=== PATIENT | female | born 1950 | race African-American/Black ===

== ENCOUNTER 2018-04-18 08:18 | Emergency (ER) | payer MEDICARE, OTHER ==
[~2018-04-18] VITALS: Ht 170.2 cm; Wt 80.0 kg
[~2018-04-18 08:18] MED LIST: VERA240C2 PO
[2018-04-18] MEDS ORDERED: AMLODIPINE 5MG TABLET PO ONE (10:00)
[2018-04-18] MEDS ORDERED: KETOROLAC 60MG/2ML VIAL IM STA (10:00)
[2018-04-18 10:20] LABS: BASOPHILS % 0.9 % (0.0-2.0); EOSINOPHILS % 1.4 % (0.0-5.0); HEMATOCRIT. 40.3 % (36.0-48.0); HEMOGLOBIN. 13.7 g/dL (12.0-16.0); LYMPHOCYTES % 36.1 % (20.0-50.0); MEAN CORPUSCULAR HEMOGLOBIN 32.3 pg (28.0-32.0); MEAN CORPUSCULAR VOLUME 95.2 fL (81.0-99.0); MEAN PLATELET VOLUME 7.4 fl (7.4-10.4); MONOCYTES % 8.6 % (2.0-8.0); PLATELET 414 x1000/uL (130-400); RED BLOOD CELL COUNT 4.23 mill/uL (4.2-5.4); RED CELL DISTRIBUTION WIDTH 12.9 % (11.6-14.6)
[2018-04-18 10:27] LABS: CHLORIDE 104 mEq/L (98-107)
[2018-04-18] MEDS ORDERED: HYDRALAZINE HCL 50MG TABLET PO ONE (12:15)
[2018-04-18 13:46] VITALS: BP 185/94
== END 2018-04-18 13:57 | disposition home or self-care (01) ==
LOC: ER 08:45
DX: I10 Essential (primary) hypertension (principal); M10.9 Gout, unspecified; Z79.899 Other long term (current) drug therapy
CPT/HCPCS: 36415; 80053; 85025; 93005; 96372; 99284; J1885